=== PATIENT | male | born 1995 | race Caucasian/White ===

== ENCOUNTER 2021-09-13 02:58 | Emergency (ER) | payer BC ==
[~2021-09-13] VITALS: Ht 188 cm; Wt 131.0 kg
[2021-09-13 03:08] VITALS: BP 138/92
[2021-09-13] MEDS ORDERED: SUCR1TAB PO (03:24)
== END 2021-09-13 03:35 | disposition home or self-care (01) ==
LOC: ER 02:59
DX: R10.13 Epigastric pain (principal); R14.1 Gas pain; Z79.899 Other long term (current) drug therapy
CPT/HCPCS: 99283